=== PATIENT | female | born 1975 | race Asian ===

== ENCOUNTER 2019-01-19 10:33 | Day surgery (SDC) | payer OTHER ==
[~2019-01-19] VITALS: Ht 165.1 cm; Wt 77.1 kg
== END 2019-01-19 13:20 | disposition home or self-care (01) ==
LOC: OR 10:33
PROC: 3E0T3BZ Introduction of Anesthetic Agent into Peripheral Nerves and Plexi, Percutaneous Approach (ICD-10-PCS; principal; 2019-01-19)
PROC: 3E0T33Z Introduction of Anti-inflammatory into Peripheral Nerves and Plexi, Percutaneous Approach (ICD-10-PCS; 2019-01-19)
PROC: BR16YZZ Fluoroscopy of Lumbar Facet Joint(s) using Other Contrast (ICD-10-PCS; 2019-01-19)
DX: M47.816 Spondylosis without myelopathy or radiculopathy, lumbar region (principal)
CPT/HCPCS: J1100; J2001; J2060

== ENCOUNTER 2019-03-15 09:38 | Day surgery (SDC) | payer OTHER ==
[2019-03-15 11:35] LABS: POTASSIUM 2.9 mmol/L (3.6-5.2)
== END 2019-03-15 10:50 | disposition home or self-care (01) ==
LOC: OR 09:38
PROVIDERS: Pain Medicine Interventional Pain Medicine
DX: Z53.8 Procedure and treatment not carried out for other reasons (principal)
CPT/HCPCS: 80048

== ENCOUNTER 2019-04-12 08:06 | Day surgery (SDC) | payer OTHER ==
[~2019-04-12] VITALS: Ht 30.5 cm; Wt 0.5 kg
== END 2019-04-12 11:15 | disposition home or self-care (01) ==
LOC: OR 08:06
PROC: 3E0T3TZ Introduction of Destructive Agent into Peripheral Nerves and Plexi, Percutaneous Approach (ICD-10-PCS; principal; 2019-04-12)
PROC: BR16YZZ Fluoroscopy of Lumbar Facet Joint(s) using Other Contrast (ICD-10-PCS; 2019-04-12)
DX: M47.816 Spondylosis without myelopathy or radiculopathy, lumbar region (principal)
CPT/HCPCS: J2001; J2250; J2405; J2704; J2765

== ENCOUNTER 2019-04-26 08:09 | Day surgery (SDC) | payer OTHER ==
[~2019-04-26] VITALS: Ht 30.5 cm; Wt 0.5 kg
[2019-04-26 08:50] LABS: PLATELET COUNT 290 K/uL (152-353)
[2019-04-26 08:54] LABS: POTASSIUM 3.7 mmol/L (3.6-5.2)
== END 2019-04-26 12:00 | disposition home or self-care (01) ==
LOC: OR 08:09
PROVIDERS: Pain Medicine Interventional Pain Medicine
PROC: 3E0T3TZ Introduction of Destructive Agent into Peripheral Nerves and Plexi, Percutaneous Approach (ICD-10-PCS; principal; 2019-04-26)
PROC: BR16YZZ Fluoroscopy of Lumbar Facet Joint(s) using Other Contrast (ICD-10-PCS; 2019-04-26)
DX: M47.816 Spondylosis without myelopathy or radiculopathy, lumbar region (principal)
CPT/HCPCS: 80053; 85027; J2001; J2250; J2405; J2704